=== PATIENT | female | born 1995 | race African-American/Black ===

== ENCOUNTER 2016-09-25 10:32 | Emergency (ER) | payer SELFPAY ==
[2016-09-25] MEDS ORDERED: ACETAMINOPHEN 325 MG TABLET PO ONE (11:43)
[2016-09-25] MEDS ORDERED: ONDANSETRON 4 MG TAB.RAPDIS PO ONE (11:43)
--- NOTE | 2016-09-25 11:43 | ER Document Report ---
ED Medical Screen (RME) - General Stated Complaint: HEADACHE Mode of Arrival: Ambulatory Information source: Patient Notes: Patient reports headache pain for the past 2 days. Patient reports sinus congestion that started today. Patient complains of neck and back pain as well. No recorded fever. Patient denies any IV drug use or spinal injections. hx: None I have greeted and performed a rapid initial assessment of this patient. A comprehensive ED assessment and evaluation of the patient, analysis of test results and completion of the medical decision making process will be conducted by additional ED providers. TRAVEL OUTSIDE OF THE [place] IN LAST 30 DAYS: No - Related Data Allergies/Adverse Reactions: No Known Allergies Allergy (Verified 09/25/16 11:40) Past Medical History - Past Medical History Cardiac Medical History: Denies: Hx Coronary Artery Disease, Hx Heart Attack, Hx Hypertension Pulmonary Medical History: Denies: Hx Asthma, Hx Bronchitis, Hx COPD, Hx Pneumonia Neurological Medical History: Denies: Hx Cerebrovascular Accident, Hx Seizures Musculoskeltal Medical History: Denies Hx Arthritis - Immunizations Hx Diphtheria, Pertussis, Tetanus Vaccination: No Physical Exam - Vital signs Vitals: Temp Pulse Resp BP Pulse Ox 98.6 F 100 16 127/69 H 99 09/25/16 11:38 09/25/16 11:38 09/25/16 11:38 09/25/16 11:38 09/25/16 11:38 - HEENT Nasal: Clear rhinorrhea Pharynx: Erythema Neck: No: Meningismus Course - Vital Signs Vital signs: Temp Pulse Resp BP Pulse Ox 98.6 F 100 16 127/69 H 99 09/25/16 11:38 09/25/16 11:38 09/25/16 11:38 09/25/16 11:38 09/25/16 11:38
[2016-09-25 14:29] VITALS: BP 117/72
--- NOTE | 2016-09-25 14:32 | ER Document Report ---
ED General - General Chief Complaint: Headache >24 hrs old Stated Complaint: HEADACHE Mode of Arrival: Ambulatory Information source: Patient Notes: Pt presents with PARKER since saturday. Has not taken anything for the PARKER because she didn't have anything, Given tylenol by RME and feels PARKER is better, tolerable. Head stopped hurting. Denies v/d. Also c/o neck,back and chest pains yesterday. Neck and back pain today, better after tylenol. Denies photophobia. Denies abdominal pain. TRAVEL OUTSIDE OF THE [place] IN LAST 30 DAYS: No - HPI Onset: Other - saturday Onset/Duration: Persistent Quality of pain: Achy Severity: Severe Pain Level: 4 Associated symptoms: Nonproductive cough Exacerbated by: Denies Relieved by: Denies Similar symptoms previously: No Recently seen / treated by doctor: No - Related Data Allergies/Adverse Reactions: No Known Allergies Allergy (Verified 09/25/16 11:40) Past Medical History - General Information source: Patient - Social History Smoking Status: Current Every Day Smoker Cigarette use (# per day): Yes Chew tobacco use (# tins/day): Yes Frequency of alcohol use: None Drug Abuse: None Occupation: [employer] Lives with: Friend Family History: Other - grandmother-aneyrsm Patient has suicidal ideation: No Patient has homicidal ideation: No - Medical History Medical History: Negative - Past Medical History Cardiac Medical History: Denies: Hx Coronary Artery Disease, Hx Heart Attack, Hx Hypertension Pulmonary Medical History: Denies: Hx Asthma, Hx Bronchitis, Hx COPD, Hx Pneumonia Neurological Medical History: Denies: Hx Cerebrovascular Accident, Hx Seizures Renal/ Medical History: Denies: Hx Peritoneal Dialysis Musculoskeltal Medical History: Denies Hx Arthritis Surgical Hx: Negative - Immunizations Hx Diphtheria, Pertussis, Tetanus Vaccination: No Review of Systems - Review of Systems Constitutional: No symptoms reported EENT: No symptoms reported. denies: Eye discharge, Blurred vision Cardiovascular: No symptoms reported Respiratory: Cough Gastrointestinal: No symptoms reported Genitourinary: No symptoms reported Female Genitourinary: No symptoms reported Musculoskeletal: Back pain, Neck pain Skin: No symptoms reported Hematologic/Lymphatic: No symptoms reported Neurological/Psychological: Headaches Physical Exam - Vital signs Vitals: Temp Pulse Resp BP Pulse Ox 98.6 F 100 16 127/69 H 99 09/25/16 11:38 09/25/16 11:38 09/25/16 11:38 09/25/16 11:38 09/25/16 11:38 - General General appearance: Appears well, Alert In distress: None - HEENT Head: Normocephalic, Atraumatic Eyes: Normal Conjunctiva: Normal Extraocular movements intact: Yes Ears: Normal External canal: Normal Tympanic membrane: Normal Pharynx: Normal. No: Erythema, Exudate, Tonsillar hypertrophy Neck: Normal, Other - chin to chest without c/o pain. No: Lymphadenopathy - Respiratory Respiratory status: No respiratory distress Chest status: Nontender Breath sounds: Normal Chest palpation: Normal - Cardiovascular Rhythm: Regular Heart sounds: Normal auscultation Murmur: No - Abdominal Inspection: Normal Distension: No distension Tenderness: Nontender - Back Back: Normal - no obvious deformity - Extremities General upper extremity: Normal ROM General lower extremity: Normal ROM - Neurological Neuro grossly intact: Yes Cognition: Normal Orientation: AAOx4 [place] Coma Scale Eye Opening: Spontaneous [place] Coma Scale Verbal: Oriented [place] Coma Scale Motor: Obeys Commands [place] Coma Scale Total: 15 Speech: Normal Motor strength normal: LUE, RUE, LLE, RLE Sensory: Normal - Psychological Associated symptoms: Normal affect, Normal mood - Skin Skin Temperature: Warm Skin Moisture: Dry Skin Color: Normal Course - Re-evaluation Re-evalutation: 09/25/16 14:38 pt is alert and oriented. Calm, no distress, speaks in full sentences, denies sinus pressure. discussed s/s meningitis with patient, instructed to return for sx, fu with a pcp for recheck within one week. she verbalized understanding. - Vital Signs Vital signs: Temp Pulse Resp BP Pulse Ox 98.6 F 100 16 127/69 H 99 09/25/16 11:38 09/25/16 11:38 09/25/16 11:38 09/25/16 11:38 09/25/16 11:38 Discharge - Discharge Clinical Impression: elevated blood pressure Headache Qualifiers: Headache type: unspecified Headache chronicity pattern: unspecified pattern Intractability: not intractable Qualified Code(s): R51 - Headache Condition: Stable Disposition: HOME, SELF-CARE Instructions: Headache ([facility]), Use of [id number]-[id number] Ibuprofen ([facility]), Use of Diphenhydramine Additional Instructions: *You have been evaluated for headache, neck and back pain *Monitor your temperature *Take tylenol or motrin as indicated for PARKER *Follow up with a primary care provider within one week *Return to ED for worsening condition, changes, needs, return of PARKER, neck pain worsening, vision problems, fever, concerns Forms: Return to Work, Elevated Blood Pressure
== END 2016-09-25 14:30 | disposition home or self-care (01) ==
LOC: ER 10:32
DX: R03.0 Elevated blood-pressure reading, without diagnosis of hypertension (principal); R51 Headache; M54.2 Cervicalgia; M54.9 Dorsalgia, unspecified; R05 Cough; F17.210 Nicotine dependence, cigarettes, uncomplicated
CPT/HCPCS: 99284; 87070; 87880; 71020; S0119

== ENCOUNTER 2017-06-08 17:34 | Emergency (ER) | payer SELFPAY ==
[2017-06-08 17:38] VITALS: BP 128/86
== END 2017-06-08 18:28 | disposition left against medical advice (07) ==
LOC: ER 17:34
DX: Z53.9 Procedure and treatment not carried out, unspecified reason (principal); N93.9 Abnormal uterine and vaginal bleeding, unspecified